=== PATIENT | female | born 2000 | race Caucasian/White ===

== ENCOUNTER 2020-02-09 14:40 | Emergency (ER) | payer MEDICAID ==
[~2020-02-09] VITALS: Ht 157.5 cm; Wt 52.4 kg
[2020-02-09 14:53] VITALS: BP 110/67
== END 2020-02-09 16:16 | disposition home or self-care (01) ==
LOC: ER 14:41
DX: S40.021A Contusion of right upper arm, initial encounter (principal); T22.00XA Burn of unspecified degree of shoulder and upper limb, except wrist and hand, unspecified site, initial encounter; R42 Dizziness and giddiness; R07.89 Other chest pain; R06.02 Shortness of breath; W86.8XXA Exposure to other electric current, initial encounter; Y93.89 Activity, other specified; Y92.89 Other specified places as the place of occurrence of the external cause; Y99.8 Other external cause status
CPT/HCPCS: 93005; 99283